=== PATIENT | female | born 1945 | race Caucasian/White ===

== ENCOUNTER → 2018-05-01 | Outpatient (REF) | payer MEDICARE, OTHER ==
[~2018-05-01] MED LIST: ACIPHEX20 MG PO; ALLEGRA180 MG PO; ASPIRIN EC81 MG PO; CALTRATE 600 PO; FISH OIL1000 MG PO; HYDROCHLOROT12.5 M1 PO; MULTI COMPLETE PO; MULTI VITAMIN1 TAB PO; OCCUVITE; OCUVIT1 PO; PRILOSEC20 MG/CAP PO; SYNTHROID25 MCG PO; TOPROL XL25 M1 PO
[2018-05-01 08:17] LABS: URINE BILIRUBIN - DIPSTICK NEGATIVE (NEGATIVE); URINE BLOOD DIPSTICK NEGATIVE (NEGATIVE); URINE CLARITY CLEAR; URINE COLOR YELLOW; URINE GLUCOSE - DIPSTICK NEGATIVE (NEGATIVE); URINE KETONE NEGATIVE (NEGATIVE); URINE LEUK ESTERASE TRACE (NEGATIVE); URINE NITRITE - DIPSTICK NEGATIVE (Negative); URINE PROTEIN - DIPSTICK NEGATIVE (NEG-TRACE); URINE SPECIFIC GRAVITY 1.015; URINE UROBILINOGEN - DIPSTICK 0.2 E.U./dL (0.2)
[2018-05-01 08:18] LABS: HEMATOCRIT 40.4 % (37.0-47.0); HEMOGLOBIN 13.6 g/dl (12.0-16.0); MEAN CELL VOLUME 86.5 fL CALC (80.0-100.0); MEAN CORPUSCULAR HGB 29.1 pG CALC (26.0-32.0); MEAN CORPUSCULAR HGB CONC 33.7 g/L CALC (32.0-36.0); RED BLOOD COUNT 4.67 mill/uL (4.20-5.60); RED CELL DISTRI WIDTH 13.7 % (11.5-15.5)
[2018-05-01 08:36] LABS: ALBUMIN 3.8 g/dL (3.2-5.0); ALKALINE PHOSPHATASE 139 u/l (38-126); ANION GAP 11 (6-22 (CALC)); BILIRUBIN, TOTAL 0.7 mg/dL (0.0-1.4); BUN 14 mg/dL (8-23); BUN/CREATININE RATIO 27 (12-20 (CALC)); CALCULATED LDLCHOLESTEROL 83 mg/dL (62-129 (CALC)); CARBON DIOXIDE 30 mmol/l (22-30); CHLORIDE 105 mmol/l (95-108); CHOLESTEROL HDL RATIO 3.1 (<4.4 (CALC)); CREATININE 0.5 mg/dL (0.5-1.0); GFR > 60 ML/MIN (>=60 (CALC)); GFR FOR AFR.AMER. > 60 ML/MIN (>=60 (CALC)); HDL CHOLESTEROL 52 mg/dL (>=40); SGOT/AST 78 u/l (9-36); SODIUM 142 mmol/l (137-146); TOTAL CHOLESTEROL 163 mg/dl (0-199); TOTAL PROTEIN 7.6 g/dL (6.3-8.2); TOTAL TRIGLYCERIDES 139 mg/dl (30-149); VLDL CHOLESTROL 28 mg/dl (0-48 (CALC))
[2018-05-01 09:04] LABS: TSH, 3RD GENERATION 2.63 uIU/mL (0.47 - 4.68)
== END | disposition home or self-care (01) ==
LOC: LAB 07:30
PROVIDERS: ATTEND Nurse Practitioner Adult Health
DX: E03.9 Hypothyroidism, unspecified (principal); I10 Essential (primary) hypertension

== ENCOUNTER 2022-07-04 15:45 | Emergency (ER) | payer MEDICARE, OTHER ==
[~2022-07-04] VITALS: Ht 162.6 cm; Wt 70.0 kg
[2022-07-04] VITALS (23 sets, daily range): BP systolic 112–198; BP diastolic 35–93
== END 2022-07-04 23:46 | disposition short-term general hospital (02) ==
LOC: ED 15:45
PROC: 2W3MX1Z Immobilization of Left Lower Extremity using Splint (ICD-10-PCS; principal; 2022-07-04)
DX: S72.462A Displaced supracondylar fracture with intracondylar extension of lower end of left femur, initial encounter for closed fracture (principal); W01.0XXA Fall on same level from slipping, tripping and stumbling without subsequent striking against object, initial encounter

== ENCOUNTER 2024-07-02 19:00 | Emergency (ER) | payer MEDICARE, OTHER ==
[~2024-07-02] VITALS: Ht 162.6 cm; Wt 58.0 kg
[2024-07-02] MEDS ORDERED: ACETAMINOPHEN 325 MG/TAB PO ONE (19:55)
[2024-07-02 21:30] VITALS: BP 98/39
[2024-07-02] MEDS ORDERED: MORPHINE SULFATE 4 MG/ML VIAL IV ONE (21:40)
[2024-07-02 21:46] VITALS: BP 113/42
[2024-07-02 22:13] VITALS: BP 136/74
== END 2024-07-02 22:20 | disposition home or self-care (01) ==
LOC: ED 19:00
DX: S52.592A Other fractures of lower end of left radius, initial encounter for closed fracture (principal); W01.0XXA Fall on same level from slipping, tripping and stumbling without subsequent striking against object, initial encounter

== ENCOUNTER 2024-09-24 09:41 | Emergency (ER) | payer MEDICARE, OTHER ==
[~2024-09-24] VITALS: Ht 162.6 cm; Wt 54.9 kg
[2024-09-24] VITALS (25 sets, daily range): BP systolic 116–177; BP diastolic 40–109
[2024-09-24 10:39] LABS: BASO% 0.3 % (0-3); EOS% 0.7 % (0-8); HEMATOCRIT 38.2 % (37.0-47.0); IMMATURE GRANULOCYTES 0.3 % (0.0-5.0); LYMPH% 9.5 % (15-41); MEAN CELL VOLUME 86.6 fL CALC (80.0-100.0); MEAN CORPUSCULAR HGB 29.5 pG CALC (26.0-32.0); NEUT# 8.61 thou/uL (2.00-7.15); NEUT% 84.2 % (42-76); RED BLOOD COUNT 4.41 mill/uL (4.20-5.60); RED CELL DISTRI WIDTH 14.1 % (11.5-15.5)
[2024-09-24 10:55] LABS: ALBUMIN 3.8 g/dL (3.2-5.0); CREATININE 0.6 mg/dL (0.5-1.0); TOTAL PROTEIN 7.7 g/dL (6.3-8.2)
[2024-09-24 10:56] LABS: BILIRUBIN, TOTAL 1.2 mg/dL (0.02-1.3)
[2024-09-24] MEDS ORDERED: POTASSIUM CHLORIDE 20 MEQ/TAB PO ONE (12:40)
[2024-09-24] MEDS ORDERED: HYDROcodone 5 MG/Acetaminophen 325 MG/COMBO PO ONE (16:30)
== END 2024-09-24 16:49 | disposition short-term general hospital (02) ==
LOC: ED 09:41
PROVIDERS: Family Medicine
DX: S72.001A Fracture of unspecified part of neck of right femur, initial encounter for closed fracture (principal); I10 Essential (primary) hypertension; W18.30XA Fall on same level, unspecified, initial encounter; Y92.009 Unspecified place in unspecified non-institutional (private) residence as the place of occurrence of the external cause; Z86.73 Personal history of transient ischemic attack (TIA), and cerebral infarction without residual deficits